=== PATIENT | female | born 1980 | race Caucasian/White ===

== ENCOUNTER 2017-02-13 20:37 | Emergency (ER) | payer BC ==
--- NOTE | 2017-02-13 22:51 | ER Document Report ---
ED Medical Screen (RME) - General Chief Complaint: Vaginal bleeding with Stated Complaint: VAGINAL BLEEDING Time Seen by Provider: 02/13/17 22:50 Notes: Patient is a 13 week 36-year-old female who presents emergency department complaining of sudden onset vaginal bleeding this evening. Patient states that she had seen [facility] Monday last week had a normal ultrasound confirming an IUP. She states that she was cooking dinner this evening when she just noticed vaginal bleeding. Otherwise denies any pelvic pain is mild back pain. TRAVEL OUTSIDE OF THE [place] IN LAST 30 DAYS: No Past Medical History Renal/ Medical History: Denies: Hx Peritoneal Dialysis Physical Exam - Vital signs Vitals: Temp Pulse Resp BP Pulse Ox 99.3 F 64 16 114/79 99 02/13/17 22:04 02/13/17 22:04 02/13/17 22:04 02/13/17 22:04 02/13/17 22:04 Course - Vital Signs Vital signs: Temp Pulse Resp BP Pulse Ox 99.3 F 64 16 114/79 99 02/13/17 22:04 02/13/17 22:04 02/13/17 22:04 02/13/17 22:04 02/13/17 22:04
[2017-02-13 23:23] LABS: ABSOLUTE EOSINOPHILS # (AUTO) 0.4 10^3/uL (0.0-0.6); ABSOLUTE LYMPHOCYTES (AUTO) 2.5 10^3/uL (0.5-4.7); ABSOLUTE MONOCYTES (AUTO) 0.5 10^3/uL (0.1-1.4); ABSOLUTE NEUT (AUTO) 7.5 10^3/uL (1.7-8.2); BASOPHILS % (AUTO) 0.5 % (0-2); EOSINOPHILS % (AUTO) 3.3 % (0-6); HEMATOCRIT 37.8 % (36.0-47.0); HEMOGLOBIN 13.2 g/dL (12.0-15.5); HGB HCT DIFFERENCE 1.8; LYMPHOCYTES % (AUTO) 23.1 % (13-45); MEAN CORPUSCULAR HEMOGLOBIN 29.6 pg (27.0-33.4); MEAN CORPUSCULAR HGB CONC 34.9 g/dL (32.0-36.0); MEAN CORPUSCULAR VOLUME 85 fl (80-97); MONOCYTES % (AUTO) 4.6 % (3-13); RED BLOOD COUNT 4.46 10^6/uL (3.72-5.28); RED CELL DISTRIBUTION WIDTH 13.4 % (11.5-14.0); SEGMENTED NEUTROPHILS % (AUTO) 68.5 % (42-78); WHITE BLOOD COUNT 10.9 10^3/uL (4.0-10.5)
[2017-02-13 23:27] LABS: APPEARANCE,URINE SLIGHTLY-CLOUDY; BILIRUBIN,URINE NEGATIVE (NEGATIVE); GLUCOSE, URINE NEGATIVE (NEGATIVE); KETONES,URINE NEGATIVE (NEGATIVE); LEUKOCYTE ESTERASE,URINE NEGATIVE (NEGATIVE); NITRITE,URINE NEGATIVE (NEGATIVE); PROTEIN,URINE 30 mg/dL (NEGATIVE); URINE SPECIFIC GRAVITY 1.023; UROBILINOGEN,URINE NEGATIVE mg/dL (<2.0)
[2017-02-13 23:33] LABS: ANION GAP 11 (5-19); BLOOD UREA NITROGEN 8 mg/dL (7-20); CALCIUM 9.4 mg/dL (8.4-10.2); CARBON DIOXIDE 23 mmol/L (22-30); CHLORIDE 106 mmol/L (98-107); CREATININE RESULT 0.42 mg/dL (0.52-1.25); GLUCOSE 83 mg/dL (75-110); SODIUM 139.6 mmol/L (137-145)
--- NOTE | 2017-02-13 23:55 | ER Document Report ---
ED GI/ - General Chief Complaint: Vaginal Bleeding Stated Complaint: VAGINAL BLEEDING Time Seen by Provider: 02/13/17 22:50 Notes: Patient is a 36 year old female, A4 at 13 weeks gestation by first trimester ultrasound, that comes to the emergency department for chief complaint of vaginal bleeding. She states she suddenly started bleeding while she was standing in the kitchen earlier this evening. She denies any pain, she denies any cramping, she denies nausea, vomiting, fever/chills, vaginal discharge. She denies dizziness. She is on vitamins, takes no daily medications otherwise, history of C-sections but no other surgeries reported. TRAVEL OUTSIDE OF THE [place] IN LAST 30 DAYS: No - Related Data Allergies/Adverse Reactions: No Known Allergies Allergy (Verified 02/14/17 00:27) Home Medications: Current Home Medications No Home Medications 02/14/17 [History] Past Medical History - General Information source: Patient - Social History Smoking Status: Current Every Day Smoker Frequency of alcohol use: None Drug Abuse: None Lives with: Family Family History: Reviewed & Not Pertinent - Medical History Medical History: Negative Renal/ Medical History: Denies: Hx Peritoneal Dialysis Past Surgical History: Reports: Hx Section - Immunizations Immunizations up to date: Yes Hx Diphtheria, Pertussis, Tetanus Vaccination: Yes Review of Systems - Review of Systems Constitutional: No symptoms reported EENT: No symptoms reported Cardiovascular: See HPI Respiratory: No symptoms reported Gastrointestinal: See HPI Genitourinary: See HPI Female Genitourinary: See HPI Musculoskeletal: No symptoms reported Skin: No symptoms reported Hematologic/Lymphatic: No symptoms reported Neurological/Psychological: No symptoms reported Physical Exam - Vital signs Vitals: Temp Pulse Resp BP Pulse Ox 99.3 F 64 16 114/79 99 02/13/17 22:04 02/13/17 22:04 02/13/17 22:04 02/13/17 22:04 02/13/17 22:04 Interpretation: Normal - General General appearance: Appears well, Alert In distress: None - Patient calm, relaxed, well-appearing - HEENT Head: Normocephalic, Atraumatic Eyes: Normal Pupils: PERRL - Respiratory Respiratory status: No respiratory distress Chest status: Nontender Breath sounds: Normal. No: Decreased air movement, Wheezing Chest palpation: Normal - Cardiovascular Rhythm: Regular. No: Tachycardia Heart sounds: Normal auscultation, S1 appreciated, S2 appreciated Murmur: No - Abdominal Inspection: Normal Distension: No distension Bowel sounds: Normal Tenderness: Nontender. No: Tender, Guarding - Completely nontender abdomen Organomegaly: No organomegaly - Back Back: Normal, Nontender - Extremities General upper extremity: Normal inspection, Nontender, Normal color, Normal ROM , Normal temperature General lower extremity: Normal inspection, Nontender, Normal color, Normal ROM , Normal temperature, Normal weight bearing. No: Dee's sign - Neurological Neuro grossly intact: Yes Cognition: Normal Orientation: AAOx4 Ever Coma Scale Eye Opening: Spontaneous [place] Coma Scale Verbal: Oriented [place] Coma Scale Motor: Obeys Commands [place] Coma Scale Total: 15 Speech: Normal Motor strength normal: LUE, RUE, LLE, RLE Sensory: Normal - Psychological Associated symptoms: Normal affect, Normal mood - Skin Skin Temperature: Warm Skin Moisture: Dry Skin Color: Normal Course - Re-evaluation Re-evalutation: Patient is very well-appearing with no current complaints and normal vital signs. CBC unremarkable, hCG is elevated as expected, urinalysis does not show any concerning findings. RhoGam is not indicated. Ultrasound showing threatened with intrauterine , heart beat present, but shows subchorionic bleed and also a fibroid. I discussed with patient the ultrasound in detail, provided a copy for her, discussed precautions and recommendations based on the subchorionic bleed, return precautions, patient and significant other state understanding and agreement. - Vital Signs Vital signs: Temp Pulse Resp BP Pulse Ox 98.5 F 78 14 105/61 99 02/14/17 01:40 02/14/17 01:40 02/14/17 01:40 02/14/17 01:40 02/14/17 01:40 - Laboratory Result Diagrams: 02/13/17 23:00 02/13/17 23:00 Laboratory results interpreted by me: 02/13/17 02/13/17 02/13/17 22:40 23:00 23:00 WBC 10.9 H Creatinine 0.42 L Beta HCG, Quant 99006.00 H Urine Protein 30 H Urine Blood LARGE H Discharge - Discharge Clinical Impression: Vaginal bleeding before 22 weeks gestation Condition: Stable Disposition: HOME, SELF-CARE Additional Instructions: Ultrasound shows a living in the uterus, there is a subchorionic bleed as we discussed, there is also uterine fibroid. Recommendation is to avoid any strenuous physical activity including jumping/running/lifting, avoid sexual intercourse, avoid these until cleared to do so by [facility]. Follow-up closely with [facility] for additional management. Return to the emergency department for any concerning symptoms including severe pain, passing out, or any other concerning symptoms. Forms: Return to Work Referrals: RAYMON ALEXANDER MD [Primary Care Provider] - Follow up as needed
--- NOTE | 2017-02-14 01:23 | RADIOLOGY REPORT (SQ) ---
EXAM DESCRIPTION: U/S [id number] TRNABD 1GES W/ODOP COMPLETED DATE/TIME: 02/14/2017 12:49 am REASON FOR STUDY: vaginal bleeding COMPARISON: None. TECHNIQUE: Transabdominal static and realtime grayscale images acquired of the pelvis. Additional se lected spectral and color Doppler images recorded. All images stored on PACs. bHCG: Not available. LIMITATIONS: None. FINDINGS: FETUS: Living intrauterine . EGA: 12 weeks 6 days YAMILETH: 08/23/2017 FHR: 163 beats per minute. SUBCHORIONIC BLEED: Yes. SIZE OF BLEED: 3.7 x 2.2 x 0.4 cm UTERUS: 6.0 cm anterior submucosal uterine wall fibroid. CERVICAL LENGTH: 3.0 cm. Closed. RIGHT ADNEXA: Ovary not identified. No adnexal free fluid. No adnexal masses. LEFT ADNEXA: Ovary not identified. No adnexal free fluid. No adnexal masses. FREE FLUID: None. OTHER: No other significant finding. IMPRESSION: LIVING INTRAUTERINE , at-risk with 3.7 cm subchorionic hemorrhage. 6 cm uterin e fibroid. EGA 12 weeks 6 days Trimester of : First - 0 to 13 weeks. TECHNICAL DOCUMENTATION: JOB ID: [id number] [employer]- All Rights Reserved
[2017-02-14 01:52] VITALS: BP 105/61
== END 2017-02-14 01:45 | disposition home or self-care (01) ==
LOC: ER 20:37
DX: O20.9 Hemorrhage in early pregnancy, unspecified (principal); O99.331 Smoking (tobacco) complicating pregnancy, first trimester; Z3A.13 13 weeks gestation of pregnancy
CPT/HCPCS: 36415; 76801; 80048; 81001; 84702; 85025; 86900; 86901; 99284

== ENCOUNTER 2017-02-26 11:15 | Inpatient (IN) | payer BC ==
[2017-02-26] MEDS ORDERED: MORPHINE SULFATE 10 MG/ML INJ IV ONE (11:35)
[2017-02-26] MEDS ORDERED: ONDANSETRON HCL INJ/PF 4 MG/2 ML SDV IV ONE (11:35)
[2017-02-26] MEDS ORDERED: NORMAL SALINE 1000 ML 1,000 ML IV ONE ×2 (11:35→12:41)
--- NOTE | 2017-02-26 11:39 | ER Document Report ---
ED GI/ - General Stated Complaint: ABDOMINAL PAIN Time Seen by Provider: 02/26/17 11:33 Mode of Arrival: Medic Information source: Patient Notes: 36 yo normally healthy, recent ex smoke, no etoh, no drugs IBSC 14 week +2 days , miscarriage in past, female felt pelvic pressure last night after work, last night some cramping, this morning woken with pains in stomach, 30 minutes felt like her water broke and gush or water came out then blood. TRAVEL OUTSIDE OF THE [place] IN LAST 30 DAYS: No - Related Data Allergies/Adverse Reactions: No Known Allergies Allergy (Verified 02/26/17 12:37) Home Medications: Current Home Medications 95/Iron Fum/Folic/Dha [ + Dha Combo Pack] 1 each PO DAILY 02/26 [History] Past Medical History - General Information source: Patient - Social History Smoking Status: Former Smoker - recent Frequency of alcohol use: None Drug Abuse: None Lives with: Family Family History: Reviewed & Not Pertinent - Medical History Medical History: Negative Renal/ Medical History: Denies: Hx Peritoneal Dialysis Past Surgical History: Reports: Hx Section - Immunizations Immunizations up to date: Yes Hx Diphtheria, Pertussis, Tetanus Vaccination: Yes Review of Systems - Review of Systems Constitutional: No symptoms reported EENT: No symptoms reported Cardiovascular: No symptoms reported Respiratory: No symptoms reported Gastrointestinal: No symptoms reported Genitourinary: No symptoms reported Female Genitourinary: See HPI Musculoskeletal: No symptoms reported Skin: No symptoms reported Hematologic/Lymphatic: No symptoms reported Neurological/Psychological: No symptoms reported Physical Exam - Vital signs Vitals: Temp Pulse Resp BP Pulse Ox 98.4 F 84 22 H 110/65 100 02/26/17 11:22 02/26/17 11:22 02/26/17 11:22 02/26/17 11:22 02/26/17 11:22 Interpretation: Normal - General General appearance: Appears well, Alert In distress: Moderate - HEENT Head: Normocephalic, Atraumatic Eyes: Normal Pupils: PERRL Neck: Supple. No: Lymphadenopathy - Respiratory Respiratory status: No respiratory distress Chest status: Nontender Breath sounds: Normal Chest palpation: Normal - Cardiovascular Rhythm: Regular Heart sounds: Normal auscultation Murmur: No - Abdominal Inspection: Normal Distension: No distension Bowel sounds: Normal Tenderness: Tender - epigastric, suprapubic Organomegaly: No organomegaly - Genitourinary External exam: Other - blood at introitus Speculum exam: Cervix closed, Other - mebranous méndez thin material hanging out of os Vaginal bleeding: Heavy - Back Back: Normal, Nontender - Extremities General upper extremity: Normal inspection, Nontender, Normal color, Normal ROM , Normal temperature General lower extremity: Normal inspection, Nontender, Normal color, Normal ROM , Normal temperature, Normal weight bearing. No: Dee's sign - Neurological Neuro grossly intact: Yes Cognition: Normal Orientation: AAOx4 Taylor Coma Scale Eye Opening: Spontaneous Taylor Coma Scale Verbal: Oriented Ever Coma Scale Motor: Obeys Commands Ever Coma Scale Total: 15 Speech: Normal Motor strength normal: LUE, RUE, LLE, RLE Sensory: Normal - Psychological Associated symptoms: Normal affect, Normal mood - Skin Skin Temperature: Warm Skin Moisture: Dry Skin Color: Normal Course - Re-evaluation Re-evalutation: 02/26/17 12:06 Dr. Fischer will admit the patient to to assist her with the miscarriage. Patient reacted to the morphine 5 mg given IV complaining that she could not breathe but she was holding her breath, lungs were clear, I did give her some Benadryl 35 mg, Solu-Medrol 125mg, Pepcid 20 mg IV. She did not become tachycardic or hypotensive. No rash. No FHT"S at the bedside. Patient had a normal ultrasound on Monday at the office. Pt and her mom understand and do not have anymore questions at this time. 02/26/17 12:41 Pain has decreased but still having cramping she has not passed anything out of her vagina except blood. 02/26/17 12:45 i asked US to do a bedisde abd us since pt has not gone to 2nd floor yet. 02/26/17 14:23 bedside US shows 13 weeks 1 day, with fhr 182, called dr. fischer and she would see pt in ER but pt just left for the floor and is not in the [facility] so calling dr fischer. and she will see the pt upstairs. 02/26/17 14:27 - Vital Signs Vital signs: Temp Pulse Resp BP Pulse Ox 99.2 F 94 20 109/58 L 99 02/26/17 14:46 02/26/17 14:46 02/26/17 14:46 02/26/17 14:46 02/26/17 14:46 - Laboratory Result Diagrams: 02/26/17 11:30 Laboratory results interpreted by me: 02/26/17 02/26/17 11:30 13:40 WBC 16.9 H Seg Neutrophils % 89.6 H Lymphocytes % 5.9 L Absolute Neutrophils 15.1 H Urine Protein 100 H Urine Ketones 20 H Urine Blood LARGE H Ur Leukocyte Esterase MODERATE H Discharge - Discharge Clinical Impression: Incomplete miscarriage at 15 weeks, pelvic pain and cramping, upper abdominal pain Condition: Stable Disposition: ADMITTED OBSERVATION Admitting Provider: [facility] Admitted: Post
[2017-02-26 11:47] LABS: ABSOLUTE EOSINOPHILS # (AUTO) 0.1 10^3/uL (0.0-0.6); ABSOLUTE MONOCYTES (AUTO) 0.6 10^3/uL (0.1-1.4); ABSOLUTE NEUT (AUTO) 15.1 10^3/uL (1.7-8.2); BASOPHILS % (AUTO) 0.2 % (0-2); EOSINOPHILS % (AUTO) 0.7 % (0-6); HEMATOCRIT 36.5 % (36.0-47.0); HEMOGLOBIN 12.5 g/dL (12.0-15.5); LYMPHOCYTES % (AUTO) 5.9 % (13-45); MEAN CORPUSCULAR HEMOGLOBIN 29.5 pg (27.0-33.4); MEAN CORPUSCULAR HGB CONC 34.4 g/dL (32.0-36.0); MEAN CORPUSCULAR VOLUME 86 fl (80-97); MONOCYTES % (AUTO) 3.6 % (3-13); RED BLOOD COUNT 4.25 10^6/uL (3.72-5.28); RED CELL DISTRIBUTION WIDTH 13.9 % (11.5-14.0); SEGMENTED NEUTROPHILS % (AUTO) 89.6 % (42-78); WHITE BLOOD COUNT 16.9 10^3/uL (4.0-10.5)
[2017-02-26] MEDS ORDERED: DIPHENHYDRAMINE HCL 50 MG/ML VIAL ONE (11:47)
[2017-02-26] MEDS ORDERED: METHYLPREDNISOLONE INJ 125 MG/2 ML SDV ONE (11:50)
[2017-02-26] MEDS ORDERED: FAMOTIDINE INJ/PF 20 MG/2 ML SDV IV ONE ×2 (11:50→12:16)
[2017-02-26] MEDS ORDERED: DIPHENHYDRAMINE HCL 50 MG/ML VIAL IV ONE (12:16)
--- NOTE | 2017-02-26 14:18 | RADIOLOGY REPORT (SQ) ---
EXAM DESCRIPTION: U/S OB LIMITED COMPLETED DATE/TIME: 02/26/2017 1:45 pm REASON FOR STUDY: impending miscarriage, bleeding and tissue in os COMPARISON: None. TECHNIQUE: Limited transvaginal grayscale ultrasound for evaluation of specific requested obstetrica l parameters. LIMITATIONS: None. FINDINGS: heart rate 182. Estimated gestational age 14 weeks 3 days. 3.5 cm subchorionic hem orrhage. Largest amniotic fluid pocket 1.6 cm. There is a 6 cm fibroid visualized. Cervix measures 4.3 cm and is closed. Small amount of fluid in the external os. IMPRESSION: LIMITED OBSTETRICAL ULTRASOUND WITH MEASURED PARAMETERS DELINEATED ABOVE. Trimester of : Second trimester - 13 weeks 1 day to 27 weeks 6 days. TECHNICAL DOCUMENTATION: JOB ID: [id number] [employer]- All Rights Reserved
[2017-02-26 14:23] LABS: APPEARANCE,URINE CLEAR; BILIRUBIN,URINE NEGATIVE (NEGATIVE); GLUCOSE, URINE NEGATIVE (NEGATIVE); KETONES,URINE 20 mg/dL (NEGATIVE); LEUKOCYTE ESTERASE,URINE MODERATE (NEGATIVE); NITRITE,URINE NEGATIVE (NEGATIVE); PROTEIN,URINE 100 mg/dL (NEGATIVE); URINE SPECIFIC GRAVITY 1.006; UROBILINOGEN,URINE NEGATIVE mg/dL (<2.0)
[2017-02-26] MEDS ORDERED: AMPICILLIN SOD/SULBACTAM 3 GM VIAL IV SCH (15:15)
--- NOTE | 2017-02-26 15:42 | PDOC H&P ---
History of Present Illness Admission Date/PCP: 02/26/17 12:27 Patient complains of: bleeding and rupture of membranes History of Present Illness: LIAM BHATIA is a 36 year old female @ 14 wks arrived to ER after experiencing a "mayen of fluid" with bleeding at home. +Cramping. Has had 4 SABs in early 1st trimester. 2 FT deliveries with the second being a c/section 7 years ago. Past Surgical History Past Surgical History: Reports: Section Social History Information Source: Patient Lives with: Spouse/Significant other Smoking Status: Former Smoker Cigarettes Packs Per Day: 0.5 Number of Years Smokin Last Time Smoked: 02/22/2017 Frequency of Alcohol Use: None Hx Recreational Drug Use: No Drugs: None Hx Prescription Drug Abuse: No - Advance Directive Resuscitation Status: Full Code Family History Family History: Reviewed & Not Pertinent Parental Family History Reviewed: Yes Children Family History Reviewed: Yes Sibling(s) Family History Reviewed.: Yes Medication/Allergy Home Medications: 95/Iron Fum/Folic/Dha [ + Dha Combo Pack] 1 each PO DAILY 02/26 Allergies/Adverse Reactions: No Known Allergies Allergy (Verified 02/26/17 12:37) Physical Exam - Physical Exam Vital Signs: Temp Pulse Resp BP Pulse Ox 99.2 F 94 20 109/58 L 99 02/26/17 14:46 02/26/17 14:46 02/26/17 14:46 02/26/17 14:46 02/26/17 14:46 General appearance: PRESENT: no acute distress, cooperative GI/Abdominal exam: PRESENT: soft, tenderness - Gynecological Exam Labia: normal Urethra: normal Perineum: discharge - blood on perineum Vagina: discharge - thin bloody watery discharge pooling in posterior fornix Cervix: other - oxternal os open. internal os closed Result Laboratory Results: 02/26/17 13:40 Urine Color RED Urine Appearance CLEAR Urine pH 6.0 Ur Specific [place] 1.006 Urine Protein 100 H Urine Glucose (UA) NEGATIVE Urine Ketones 20 H Urine Blood LARGE H Urine Nitrite NEGATIVE Ur Leukocyte Esterase MODERATE H Urine WBC (Auto) 0 Urine RBC (Auto) 1 Impressions: Obstetrics Ultrasound 02/26/17 12:42 IMPRESSION: LIMITED OBSTETRICAL ULTRASOUND WITH MEASURED PARAMETERS DELINEATED ABOVE. Trimester of : Second trimester - 13 weeks 1 day to 27 weeks 6 days. Assessment & Plan - Diagnosis (1) Incomplete miscarriage Is this a current diagnosis for this admission?: Yes (2) Chorioamnionitis Qualifiers: Fetus number: single or unspecified fetus Trimester: second trimester Qualified Code(s): O41.1220 - Chorioamnionitis, second trimester, not applicable or unspecified Is this a current diagnosis for this admission?: Yes Plan: discussed with patient regarding lack of interventions available to fetus at this early gestational age well before age of viability. counseled on likelihood of chorioamnionitis and possible progression to sepsis if not treated. counseled conservative management vs medical management. Explained that at this gestational age would advise medical management before attempting surgical management for any type of retained products. Did explain that although fetus does have a heartbeat at this time, the likelihood of continuing to a viable gestational age is very small and that would anticipate that heart beat would stop of it own accord with conservative management based on sono findings of subchorionic hemorrhage and lack of ELVI. Patient to consider medical management regarding completion of SAB. Does agree to start antibiotics at this time to attempt to prevent sepsis. - Time Time Spent: 30 to 50 Minutes Smoking Cessation Education: 3 to 10 minutes Medications reviewed and adjusted accordingly: Yes Anticipated discharge: Home Within: within 48 hours - Inpatient Certification Based on my medical assessment, after consideration of the patient's comorbidities, presenting symptoms, or acuity I expect that the services needed warrant INPATIENT care.: Yes I certify that my determination is in accordance with my understanding of Medicare's requirements for reasonable and necessary INPATIENT services [42 CFR 412.3e].: Yes Medical Necessity: Need Close Monitoring Due to Risk of Patient Decompensation, Need for IV Antibiotics, Risk of Complication if Not Cared For in Hospital
[2017-02-26] MEDS ORDERED: AMPICILLIN SODIUM/SULBACTAM NA 3 GM in NORMAL SALINE 100 ML IV ONE (16:30)
[2017-02-26 18:51] LABS: URINE BARBITURATES SCREEN NEGATIVE; URINE METHADONE SCREEN NEGATIVE; URINE PHENCYCLIDINE SCREEN NEGATIVE
[2017-02-26 19:05] LABS: URINE OPIATES LOW UNCONFIRMED POSITIVE
[2017-02-26] MEDS ORDERED: OXYCODONE-ACETAMINOPHEN 5-325 MG TABLET PO PRN (19:33)
[2017-02-26] MEDS: ACETAMINOPHEN 325 MG TABLET PO PRN (20:47)
[2017-02-26] MEDS: AMPICILLIN SODIUM/SULBACTAM NA 3 GM in NORMAL SALINE 100 ML IV SCH (22:41)
[2017-02-27] MEDS: ACETAMINOPHEN 325 MG TABLET PO PRN (04:37)
[2017-02-27] MEDS: AMPICILLIN SODIUM/SULBACTAM NA 3 GM in NORMAL SALINE 100 ML IV SCH ×3 (05:09→22:26)
--- NOTE | 2017-02-27 08:56 | PDOC PROGRESS REPORT ---
Subjective Subjective:: Pt reports very mild spotting, leaking a little fluid, NO abdominal pain No new complaints Physical Exam - Physical Exam Vital Signs: Temp Pulse Resp BP Pulse Ox 98.2 F 68 17 95/49 L 98 02/27/17 07:51 02/27/17 07:51 02/27/17 07:51 02/27/17 07:51 02/27/17 07:51 Intake & Output 02/26/17 02/27/17 02/28/17 06:59 06:59 06:59 Intake Total 500 Output Total 275 Balance 225 General appearance: PRESENT: no acute distress, cooperative, well-developed GI/Abdominal exam: PRESENT: normal bowel sounds, soft - Abdomen is nontender - Gynecological Exam Labia: normal Urethra: normal Perineum: discharge - blood on perineum Vagina: discharge - thin bloody watery discharge pooling in posterior fornix Cervix: other - oxternal os open. internal os closed Result Impressions: Obstetrics Ultrasound 02/26/17 12:42 IMPRESSION: LIMITED OBSTETRICAL ULTRASOUND WITH MEASURED PARAMETERS DELINEATED ABOVE. Trimester of : Second trimester - 13 weeks 1 day to 27 weeks 6 days. Assessment & Plan - Diagnosis (1) Incomplete miscarriage Is this a current diagnosis for this admission?: Yes - Time Time Spent with patient: Less than 15 minutes Medications reviewed and adjusted accordingly: Yes Anticipated discharge: Home Within: Other - Pt is still undecided about what course she wants to take. Answered questions for pt. Will recheck cbc, heart tones and continue IV Abx
[2017-02-27] MEDS ORDERED: IBUPROFEN 800 MG TABLET PO PRN (09:12)
[2017-02-27] MEDS ORDERED: ONDANSETRON 4 MG TAB.RAPDIS PO PRN (09:13)
[2017-02-27 10:55] LABS: HEMATOCRIT 33.5 % (36.0-47.0); HEMOGLOBIN 11.3 g/dL (12.0-15.5); HGB HCT DIFFERENCE 0.4; MEAN CORPUSCULAR HEMOGLOBIN 29.1 pg (27.0-33.4); MEAN CORPUSCULAR HGB CONC 33.7 g/dL (32.0-36.0); MEAN CORPUSCULAR VOLUME 86 fl (80-97); RED BLOOD COUNT 3.88 10^6/uL (3.72-5.28); RED CELL DISTRIBUTION WIDTH 13.7 % (11.5-14.0); WHITE BLOOD COUNT 16.9 10^3/uL (4.0-10.5)
--- NOTE | 2017-02-27 11:26 | RADIOLOGY REPORT (SQ) ---
EXAM DESCRIPTION: U/S OB LIMITED COMPLETED DATE/TIME: 02/27/2017 11:05 am REASON FOR STUDY: Check for viability, PROM at 15 weeks 02/25 COMPARISON: OB ultrasound 02/26/2017, 02/14/2017 TECHNIQUE: Limited transabdominal grayscale ultrasound for evaluation of specific requested obstetri jose parameters. LIMITATIONS: None. FINDINGS: CERVICAL LENGTH: 3.3 cm Closed. ELVI: 1 cm. There is oligohydramnios with only a tiny pocket of fluid measuring 1 cm in size. This r esult was discussed with Dr. Pineda. FHR: 155 beats per minute. PRESENTATION: Cephalic. OTHER: Anterior placenta IMPRESSION: Oligohydramnios heart rate 155 beats per minute Results called to the OB attending physician Trimester of : Third trimester - 28 weeks to delivery. TECHNICAL DOCUMENTATION: JOB ID: [id number] [employer]- All Rights Reserved
[2017-02-28] MEDS: ACETAMINOPHEN 325 MG TABLET PO PRN (00:26)
[2017-02-28] MEDS: AMPICILLIN SODIUM/SULBACTAM NA 3 GM in NORMAL SALINE 100 ML IV SCH ×3 (06:23→22:21)
[2017-02-28 07:24] LABS: HEMATOCRIT 28.8 % (36.0-47.0); HEMOGLOBIN 10.1 g/dL (12.0-15.5); HGB HCT DIFFERENCE 1.5; MEAN CORPUSCULAR HEMOGLOBIN 30.3 pg (27.0-33.4); MEAN CORPUSCULAR VOLUME 87 fl (80-97); RED BLOOD COUNT 3.32 10^6/uL (3.72-5.28); RED CELL DISTRIBUTION WIDTH 13.4 % (11.5-14.0); WHITE BLOOD COUNT 10.3 10^3/uL (4.0-10.5)
[2017-02-28] MEDS: FERROUS SULFATE 325 MG TABLET PO SCH ×2 (10:40→17:03)
--- NOTE | 2017-02-28 12:23 | PDOC PROGRESS REPORT ---
Subjective Progress Note for:: 02/28/17 Subjective:: Pt. denies spotting since early this am. Denies Leakage of fluid today and does report moderate cramping last night and mild cramping today as well as abdominal ternderness with palpation or sudden movement. Reports no bowel movement x5-7 days feeling urge to have bowel movement but scared it might be pressure from baby. Reports she wants to hang on to the hope that the baby will survive. Wondering what the plan will be at this time.Denies other concerns. Physical Exam - Physical Exam Vital Signs: Temp Pulse Resp BP Pulse Ox 97.6 F 79 15 103/53 L 100 02/28/17 07:24 02/28/17 07:24 02/28/17 07:24 02/28/17 07:24 02/28/17 07:24 Intake & Output 02/27/17 02/28/17 03/01/17 06:59 06:59 06:59 Intake Total 500 1000 Output Total 275 600 Balance 225 400 General appearance: PRESENT: no acute distress GI/Abdominal exam: PRESENT: other - soft, + tenderness on Left upper quadrant and right lower abdominal pain with palpation - Gynecological Exam Cervix: not examined - Obstetrical Exam Tender: No - FHT @ 166 this am per RN w doppler. Result Laboratory Results: 02/28/17 06:52 02/27/17 02/28/17 10:35 06:52 WBC 16.9 H 10.3 RBC 3.88 3.32 L Hgb 11.3 L 10.1 L Hct 33.5 L 28.8 L MCV 86 87 MCH 29.1 30.3 MCHC 33.7 35.0 RDW 13.7 13.4 Plt Count 167 137 L Impressions: Obstetrics Ultrasound 02/27/17 00:00 IMPRESSION: Oligohydramnios heart rate 155 beats per minute Results called to the OB attending physician Trimester of : Third trimester - 28 weeks to delivery. Assessment & Plan - Diagnosis (1) premature rupture of membranes Is this a current diagnosis for this admission?: Yes Plan: will have repeat ELVI tomorrow per Dr. Cruz, continue heart tones q shift. continue to monitor for s/s of abruption/infection/SAB (2) Chorioamnionitis Qualifiers: Fetus number: single or unspecified fetus Trimester: second trimester Qualified Code(s): O41.1220 - Chorioamnionitis, second trimester, not applicable or unspecified Is this a current diagnosis for this admission?: Yes Plan: WBC down to 10.3 from 16.9, continue antibiotics at this time (3) Anemia affecting Qualifiers: Trimester: second trimester Qualified Code(s): O99.012 - Anemia complicating , second trimester Is this a current diagnosis for this admission?: Yes Plan: will obtain anemia panel and start feso4 bid today - Time Time Spent with patient: 15-24 minutes Medications reviewed and adjusted accordingly: Yes Anticipated discharge: Home Within: within 24 hours
[2017-02-28] MEDS: DOCUSATE SODIUM 100 MG CAPSULE PO PRN (17:04)
--- NOTE | 2017-03-01 01:37 | RADIOLOGY REPORT (SQ) ---
EXAM DESCRIPTION: U/S OB LIMITED COMPLETED DATE/TIME: 02/28/2017 11:49 pm REASON FOR STUDY: Heart Tones, and Fluid check STAT COMPARISON: 02/27/2017, 02/26/2017. TECHNIQUE: Limited transabdominal grayscale ultrasound for evaluation of specific requested obstetri jose parameters. LIMITATIONS: None. FINDINGS: CERVICAL LENGTH: 4.2 cm up to 1.0 cm diameter of the cervical canal with small fluid. ELVI: 1.0 cm. FHR: 68 beats per minute. PRESENTATION: Cephalic. OTHER: No other significant findings. IMPRESSION: Oligohydramnios again demonstrated. Small fluid in the cervical canal. LIMITED OBSTETR ICAL ULTRASOUND WITH MEASURED PARAMETERS DELINEATED ABOVE. Trimester of : Third trimester - 28 weeks to delivery. TECHNICAL DOCUMENTATION: JOB ID: [id number] [employer]- All Rights Reserved
[2017-03-01] MEDS: AMPICILLIN SODIUM/SULBACTAM NA 3 GM in NORMAL SALINE 100 ML IV SCH ×3 (05:11→22:08)
--- NOTE | 2017-03-01 05:36 | PDOC PROGRESS REPORT ---
Subjective Progress Note for:: 03/01/17 Subjective:: called by RN on floor who reported they were unable to obtain FHR by doppler at approx 2300. US ordered for FHR and report available now and reviewed with the patient. Physical Exam - Physical Exam Vital Signs: Temp Pulse Resp BP Pulse Ox 98.5 F 76 16 95/50 L 100 03/01/17 03:53 03/01/17 03:53 03/01/17 03:53 03/01/17 03:53 03/01/17 03:53 Intake & Output 02/27/17 02/28/17 03/01/17 06:59 06:59 06:59 Intake Total 500 1000 1350 Output Total 275 600 Balance [phone] General appearance: PRESENT: no acute distress, well-developed, well-nourished Head exam: PRESENT: atraumatic, normocephalic Respiratory exam: PRESENT: clear to auscultation jian, symmetrical, unlabored Cardiovascular exam: PRESENT: RRR. ABSENT: diastolic murmur, rubs, systolic murmur Pulses: PRESENT: normal dorsalis pedis pul, +2 pedal pulses bilateral GI/Abdominal exam: PRESENT: normal bowel sounds, soft, tenderness - mild lower abd ttp. ABSENT: distended, guarding, mass, organolmegaly, rebound Rectal exam: PRESENT: deferred Extremities exam: PRESENT: full ROM. ABSENT: calf tenderness, clubbing, pedal edema Neurological exam: PRESENT: alert, awake, oriented to person, oriented to place , oriented to time, oriented to situation, CN II-XII grossly intact. ABSENT: motor sensory deficit Psychiatric exam: PRESENT: appropriate affect - tearful with diagnosis., normal mood. ABSENT: homicidal ideation, suicidal ideation Skin exam: PRESENT: dry, intact, warm. ABSENT: cyanosis, rash - Gynecological Exam Labia: normal Urethra: normal Perineum: discharge - blood on perineum Vagina: discharge - thin bloody watery discharge pooling in posterior fornix Cervix: other - oxternal os open. internal os closed Cervix: not examined Result Laboratory Results: 02/28/17 06:52 02/28/17 02/28/17 02/28/17 06:52 06:52 06:52 WBC 10.3 RBC 3.32 L Hgb 10.1 L Hct 28.8 L MCV 87 MCH 30.3 MCHC 35.0 RDW 13.4 Plt Count 137 L Retic Count (auto) 1.99 Absolute Retic 0.067 Iron 23.5 L TIBC 306 % Saturation 8 Ferritin 44.10 Vitamin B12 249.0 Folate 19.00 Impressions: Obstetrics Ultrasound 02/28/17 00:00 IMPRESSION: Oligohydramnios again demonstrated. Small fluid in the cervical canal. LIMITED OBSTETRICAL ULTRASOUND WITH MEASURED PARAMETERS DELINEATED ABOVE. Trimester of : Third trimester - 28 weeks to delivery. FHR 68 Status: Imported from PACS Assessment & Plan - Diagnosis (1) premature rupture of membranes Qualifiers: PROM onset of labor timing: unspecified duration between rupture of membranes and onset of labor Qualified Code(s): O42.919 - premature rupture of membranes, unspecified as to length of time between rupture and onset of labor, unspecified trimester Is this a current diagnosis for this admission?: Yes Plan: s/w pt regarding FHR 68 and inevitable loss at this time. Pt reports that she would like interval repeat US with confirmation of absent FHR prior to pursuing medications for induction of delivery. She was tearful regarding diagnosis but o/w affect approp and verbalized understanding of diagnosis. (2) Incomplete miscarriage Is this a current diagnosis for this admission?: Yes Plan: FHR now 68 and inevitable loss at this time. Pt desires expectant management. - Time Time Spent with patient: Less than 15 minutes Medications reviewed and adjusted accordingly: Yes Anticipated discharge: Home Within: within 36 hours - Inpatient Certification Based on my medical assessment, after consideration of the patient's comorbidities, presenting symptoms, or acuity I expect that the services needed warrant INPATIENT care.: Yes I certify that my determination is in accordance with my understanding of Medicare's requirements for reasonable and necessary INPATIENT services [42 CFR 412.3e].: Yes Medical Necessity: Need Close Monitoring Due to Risk of Patient Decompensation, Need for Pain Control, Risk of Complication if Not Cared For in Hospital Post Hospital Care: D/C Rib Cloth Knitter Documentation
[2017-03-01 08:03] LABS: HEMATOCRIT 30.9 % (36.0-47.0); HEMOGLOBIN 10.8 g/dL (12.0-15.5); HGB HCT DIFFERENCE 1.5; MEAN CORPUSCULAR HEMOGLOBIN 29.9 pg (27.0-33.4); MEAN CORPUSCULAR HGB CONC 35.1 g/dL (32.0-36.0); MEAN CORPUSCULAR VOLUME 85 fl (80-97); RED BLOOD COUNT 3.63 10^6/uL (3.72-5.28); RED CELL DISTRIBUTION WIDTH 13.5 % (11.5-14.0); WHITE BLOOD COUNT 8.6 10^3/uL (4.0-10.5)
--- NOTE | 2017-03-01 08:11 | RADIOLOGY REPORT (SQ) ---
EXAM DESCRIPTION: U/S OB LIMITED COMPLETED DATE/TIME: 03/01/2017 8:01 am REASON FOR STUDY: Check for heart tones and ELVI COMPARISON: 02/28/2017 TECHNIQUE: Limited transvaginal grayscale ultrasound for evaluation of specific requested obstetrica l parameters. LIMITATIONS: None. FINDINGS: ELVI: Largest pocket 1.2 cm. FHR: No cardiac activity is identified. PRESENTATION: Cephalic. OTHER: No other significant findings. IMPRESSION: No cardiac activity is identified. Trimester of : Second trimester - 13 weeks 1 day to 27 weeks 6 days. TECHNICAL DOCUMENTATION: JOB ID: [id number] [employer]- All Rights Reserved
[2017-03-01] MEDS: ACETAMINOPHEN 325 MG TABLET PO PRN (08:43)
[2017-03-01] MEDS: DOCUSATE SODIUM 100 MG CAPSULE PO PRN (09:07)
[2017-03-01] MEDS: FERROUS SULFATE 325 MG TABLET PO SCH ×2 (09:07→18:41)
[2017-03-01] MEDS ORDERED: SUCCINYLCHOLINE CHLORIDE INJ 200 MG/10 ML VIAL ONE (09:34)
[2017-03-01] MEDS ORDERED: METOCLOPRAMIDE HCL INJ/PF 10 MG/2 ML SDV ONE (09:34)
--- NOTE | 2017-03-01 09:37 | PDOC PROGRESS REPORT ---
Subjective Progress Note for:: 03/01/17 Subjective:: Discussed demise with the patient. We now plan an induction of labor. Physical Exam - Physical Exam Vital Signs: Temp Pulse Resp BP Pulse Ox 97.9 F 71 16 107/59 L 99 03/01/17 07:42 03/01/17 07:42 03/01/17 07:42 03/01/17 07:42 03/01/17 07:42 Intake & Output 02/28/17 03/01/17 03/02/17 06:59 06:59 06:59 Intake Total 1000 1450 Output Total 600 Balance 400 1450 General appearance: PRESENT: no acute distress, well-developed, well-nourished - Gynecological Exam Labia: normal Urethra: normal Perineum: discharge - blood on perineum Vagina: discharge - thin bloody watery discharge pooling in posterior fornix Cervix: other - oxternal os open. internal os closed Cervix: not examined Result Laboratory Results: 03/01/17 07:32 02/28/17 02/28/17 02/28/17 06:52 06:52 06:52 WBC RBC Hgb Hct MCV MCH MCHC RDW Plt Count Retic Count (auto) 1.99 Absolute Retic 0.067 Iron 23.5 L TIBC 306 % Saturation 8 Transferrin 229 Ferritin 44.10 Vitamin B12 249.0 Folate 19.00 03/01/17 07:32 WBC 8.6 RBC 3.63 L Hgb 10.8 L Hct 30.9 L MCV 85 MCH 29.9 MCHC 35.1 RDW 13.5 Plt Count 161 Retic Count (auto) Absolute Retic Iron TIBC % Saturation Transferrin Ferritin Vitamin B12 Folate Impressions: Obstetrics Ultrasound 03/01/17 07:30 IMPRESSION: No cardiac activity is identified. Trimester of : Second trimester - 13 weeks 1 day to 27 weeks 6 days. Assessment & Plan - Diagnosis (1) Incomplete miscarriage Is this a current diagnosis for this admission?: Yes Plan: We plan to proceed with an induction of labor using cytotec [facility]. Iv pain medication. She may have an epidural if desired.
[2017-03-01] MEDS ORDERED: HYDROMORPHONE HCL INJ/PF 2 MG/ML AMPULE IV PRN ×2 (09:47→18:05)
[2017-03-01] MEDS ORDERED: MISOPROSTOL 0.2 MG TABLET PO SCH (10:00)
[2017-03-01] MEDS ORDERED: MISOPROSTOL 0.2 MG TABLET PR ONE (10:30)
[2017-03-01] MEDS: MISOPROSTOL 0.2 MG TABLET PR SCH (14:01)
[2017-03-01] MEDS ORDERED: LIDOCAINE 2% INJ-PF (20 MG/ML) 10 ML AMPUL ONE (16:46)
[2017-03-01] MEDS ORDERED: FENTANYL CITRATE INJ/PF 100 MCG/2 ML AMPUL ONE (16:46)
[2017-03-01] MEDS ORDERED: PROPOFOL INJ 200 MG/20 ML VIAL IV ONE (16:46)
[2017-03-01] MEDS ORDERED: ONDANSETRON HCL INJ/PF 4 MG/2 ML SDV ONE (16:46)
[2017-03-01] MEDS ORDERED: DEXAMETHASONE SOD PHOSPHATE INJ 4 MG/1 ML VIAL ONE (16:46)
[2017-03-01] MEDS ORDERED: MIDAZOLAM 2 MG/2 ML INJ ONE (16:46)
[2017-03-01] MEDS ORDERED: ACETAMINOPHEN 100 ML IV ONE (16:47)
[2017-03-01] MEDS ORDERED: PROMETHAZINE HCL INJ 25 MG/1 ML VIAL IV PRN ×3 (17:32→17:47)
[2017-03-01] MEDS ORDERED: FENTANYL CITRATE INJ/PF 100 MCG/2 ML AMPUL IV PRN ×3 (17:32)
[2017-03-01] MEDS ORDERED: MORPHINE SULFATE 10 MG/ML INJ IV PRN (17:32)
[2017-03-01] MEDS ORDERED: OXYCODONE-ACETAMINOPHEN 5-325 MG TABLET PO PRN ×2 (17:32)
[2017-03-01] MEDS ORDERED: ONDANSETRON HCL INJ/PF 4 MG/2 ML SDV IV PRN (17:32)
[2017-03-01] MEDS ORDERED: DIPHENHYDRAMINE HCL 50 MG/ML VIAL IV PRN (17:32)
[2017-03-01] MEDS ORDERED: MEPERIDINE HCL/PF INJ 25 MG/1 ML DISP.SYRIN IV PRN (17:32)
[2017-03-01] MEDS ORDERED: DIBUCAINE 1% OINTMENT 28 GM TP PRN (17:47)
[2017-03-01] MEDS ORDERED: PSEUDOEPHEDRINE HCL 30 MG TABLET PO PRN (17:47)
[2017-03-01] MEDS ORDERED: ACETAMINOPHEN WITH CODEINE #3 TABLET PO PRN ×2 (17:47)
[2017-03-01] MEDS ORDERED: DIPHENHYDRAMINE HCL 25 MG CAPSULE PO PRN (17:47)
[2017-03-01] MEDS ORDERED: NA PHOS,M-B/NA PHOS,DI-BA (ADULT) 133 ML ENEMA PR PRN (17:47)
[2017-03-01] MEDS ORDERED: OXYTOCIN/NORMAL SALINE 20 UNIT/1,000 ML RTUINJ IV PRN (17:47)
[2017-03-01] MEDS ORDERED: ACETAMINOPHEN 650 MG SUPP.RECT PR PRN (17:47)
[2017-03-01] MEDS ORDERED: GLYCERIN/WITCH HAZEL LEAF 1 EACH MED..PAD TP PRN (17:47)
[2017-03-01] MEDS ORDERED: PROMETHAZINE HCL 25 MG TABLET PO PRN (17:47)
[2017-03-01] MEDS ORDERED: ZOLPIDEM TARTRATE 5 MG TABLET PO PRN (17:47)
[2017-03-01] MEDS ORDERED: MEASLES,MUMPS&RUBELLA VACC/PF 0.5 ML VIAL SUBCUT PRN (17:47)
[2017-03-01] MEDS ORDERED: DIPH/PERTUSS(ACELL)/TETANUS VAC/PF 0.5 ML SYR (>=10YO) IM PRN (17:47)
[2017-03-01] MEDS ORDERED: PROMETHAZINE HCL 25 MG SUPP.RECT PR PRN (17:47)
[2017-03-01] MEDS ORDERED: MAGNESIUM HYDROXIDE SUSP 30 ML UDCUP PO PRN (17:47)
--- NOTE | 2017-03-01 17:54 | Operative Report ---
Operative Report DATE OF SURGERY: 03/01/17 PREOPERATIVE DIAGNOSIS: Retained placenta after miscarriage POSTOPERATIVE DIAGNOSIS: Same OPERATION: Suction D&C SURGEON: GREG RODRIGUEZ ANESTHESIA: GA TISSUE REMOVED OR ALTERED: Placenta COMPLICATIONS: None ESTIMATED BLOOD LOSS: 50 cc INTRAOPERATIVE FINDINGS: Retained placenta PROCEDURE: The patient has passed a 14 week size fetus the cord broke when she passed the fetus into the toilet. We have waited approximately an hour in the placenta is retained. Speculum exam shows a open cervix there is no placenta at the os. For this reason we will proceed with suction D&C. Patient was taken to the OR and placed in supine position. General anesthesia was induced. She is placed in dorsolithotomy position using Julian stirrups. A weighted speculum was placed after the vagina was prepped. The anterior lip cervix was grasped with a ring forcep. A second ring forcep was used to probe the cervical loss. There were some membranes present. Next a size 12 suction curette was used to evacuate the uterine contents with a large return of placenta. After the removal of the placenta there were no further retained products found with further suction curettage or gentle sharp curettage. Sound was to 12 cm at the end of the case. The uterus appeared to be rubio down and the bleeding decreased. All instruments were removed she is placed back in supine position taken out of anesthesia and taken to recovery room in stable condition.
[2017-03-01] MEDS ORDERED: MISOPROSTOL 0.2 MG TABLET PR PRN (18:04)
[2017-03-01 19:20] LABS: ABSOLUTE EOSINOPHILS # (AUTO) 0.1 10^3/uL (0.0-0.6); ABSOLUTE LYMPHOCYTES (AUTO) 0.8 10^3/uL (0.5-4.7); ABSOLUTE MONOCYTES (AUTO) 0.3 10^3/uL (0.1-1.4); ABSOLUTE NEUT (AUTO) 12.8 10^3/uL (1.7-8.2); BASOPHILS % (AUTO) 0.2 % (0-2); EOSINOPHILS % (AUTO) 0.7 % (0-6); HEMATOCRIT 30.4 % (36.0-47.0); HEMOGLOBIN 10.4 g/dL (12.0-15.5); HGB HCT DIFFERENCE 0.8; LYMPHOCYTES % (AUTO) 5.7 % (13-45); MEAN CORPUSCULAR HEMOGLOBIN 28.8 pg (27.0-33.4); MEAN CORPUSCULAR HGB CONC 34.1 g/dL (32.0-36.0); MEAN CORPUSCULAR VOLUME 85 fl (80-97); MONOCYTES % (AUTO) 1.9 % (3-13); RED BLOOD COUNT 3.59 10^6/uL (3.72-5.28); RED CELL DISTRIBUTION WIDTH 13.3 % (11.5-14.0); SEGMENTED NEUTROPHILS % (AUTO) 91.5 % (42-78)
[2017-03-01] MEDS ORDERED: FAMOTIDINE 20 MG TABLET PO SCH (22:00)
[2017-03-01] MEDS: IBUPROFEN 800 MG TABLET PO SCH (22:09)
[2017-03-02] MEDS: MISOPROSTOL 0.2 MG TABLET PR SCH ×3 (01:11→05:49)
[2017-03-02] MEDS: AMPICILLIN SODIUM/SULBACTAM NA 3 GM in NORMAL SALINE 100 ML IV SCH (05:42)
[2017-03-02] MEDS: IBUPROFEN 800 MG TABLET PO SCH (05:43)
--- NOTE | 2017-03-02 07:22 | PDOC DISCHARGE SUMMARY ---
Final Diagnosis Discharge Date: 03/02/17 - Final Diagnosis (1) Incomplete miscarriage Is this a current diagnosis for this admission?: Yes Discharge Data - Discharge Medication Home Medications: 95/Iron Fum/Folic/Dha [ + Dha Combo Pack] 1 each PO DAILY 02/26 Gestational Age: 14 Reason(s) for Admission: Demise - demise at 14 weeks prior to delivery. Admission Note: The pt was admitted with ruptured membranes at 14 weeks. Procedures: None Intrapartum Procedure(s): Other - Diagnosis Test Laboratory: Temp Pulse Resp BP Pulse Ox 98.5 F 64 14 92/45 L 98 03/02/17 03:27 03/02/17 03:27 03/02/17 03:27 03/02/17 03:27 03/02/17 03:27 02/26/17 02/27/17 02/28/17 18:10 10:35 06:52 RBC 3.88 3.32 L Hgb 11.3 L 10.1 L Hct 33.5 L 28.8 L Urine Opiates Screen UNCONFIRMED POSITIVE 03/01/17 03/01/17 07:32 19:11 RBC 3.63 L 3.59 L Hgb 10.8 L 10.4 L Hct 30.9 L 30.4 L Urine Opiates Screen - Discharge information/Instructions Discharge Activity: Pelvic Rest Discharge Diet: As Tolerated, Regular Disposition: HOME, SELF-CARE Follow up with: [facility] in: 1, Weeks
[2017-03-02 08:00] LABS: HEMATOCRIT 29.7 % (36.0-47.0); HEMOGLOBIN 10.3 g/dL (12.0-15.5); HGB HCT DIFFERENCE 1.2; MEAN CORPUSCULAR HEMOGLOBIN 29.3 pg (27.0-33.4); MEAN CORPUSCULAR HGB CONC 34.8 g/dL (32.0-36.0); MEAN CORPUSCULAR VOLUME 84 fl (80-97); RED BLOOD COUNT 3.52 10^6/uL (3.72-5.28); RED CELL DISTRIBUTION WIDTH 13.4 % (11.5-14.0); WHITE BLOOD COUNT 13.8 10^3/uL (4.0-10.5)
[2017-03-02 08:38] VITALS: BP 101/57
[2017-03-02] MEDS ORDERED: FERROUS SULFATE 325 MG TABLET PO SCH (10:00)
[2017-03-02] MEDS ORDERED: SENNOSIDES/DOCUSATE 8.6-50 MG 1 EACH TABLET PO SCH (10:00)
== END 2017-03-02 10:05 | disposition home or self-care (01) | DRG 770 ==
LOC: ER 11:15 → EH 12:27 → 2S 14:30 → OBSVTOIN 15:14
PROVIDERS: ADMIT Obstetrics & Gynecology; ATTEND Obstetrics & Gynecology
PROC: 10D17ZZ Extraction of Products of Conception, Retained, Via Natural or Artificial Opening (ICD-10-PCS; principal; 2017-03-01 17:30)
DX: O03.4 Incomplete spontaneous abortion without complication (principal); O41.1220 Chorioamnionitis, second trimester, not applicable or unspecified; O99.012 Anemia complicating pregnancy, second trimester; Z87.891 Personal history of nicotine dependence
CPT/HCPCS: 1965; 36415; 76815; 80307; 81001; 82607; 82728; 82746; 83540; 83550; 84466; 85025; 85027; 85045; 86850; 86900; 86901; 88305; 96361; 96374; 96375; 99285; J0131; J0295; J0330; J1100; J1170; J1200; J2250; J2270; J2405; J2704; J2765; J2930; J3010; J3490; J7030; S0028

== ENCOUNTER 2017-12-06 12:20 | Outpatient (CLI) | payer BC, MEDICAID ==
--- NOTE | 2017-12-06 13:42 | Non Stress Test Report ---
Non Stress Test Datetime Report Generated by CPN: 12/06/2017 13:42 DEMOGRAPHIC EGA NST: 32.2 INDICATION Indication for Study: Multiple Gestation; Ordered by Provider MONITORING Monitor Explained: Monitor Explained; Test Explained; Patient Verbalized Understanding Time on Monitor: 12/06/2017 12:36 Time off Monitor: 12/06/2017 13:27 NST Duration: 51 NST INTERVENTIONS NST Interventions: PO Hydration Physician Notified NST: Wang BABY A: [id number] BABY A Movement : Present Contraction Frequency : 0 FHR Baseline : 135 Accelerations : 15X15 Decelerations : None Variability : Moderate 6-25bpm NST Review: Meets Criteria for Reactive NST NST Review and Verified By : LAURA ROTHMAN RN NST Results: Reactive BABY B Movement: Present FHR Baseline: 125 Accelerations: 15X15 Decelerations: None Variability: Moderate 6-25bpm NST Review: Meets Criteria for Reactive NST NST Reviewed And Verified By: BL ROULUND, RN NST Results: Reactive NST REPORT Report Trigger: Send Report
== END 2017-12-06 13:37 | disposition home or self-care (01) ==
LOC: LC 12:20
PROVIDERS: ATTEND Obstetrics & Gynecology
PROC: 4A1HXCZ Monitoring of Products of Conception, Cardiac Rate, External Approach (ICD-10-PCS; principal; 2017-12-06)
DX: O30.003 Twin pregnancy, unspecified number of placenta and unspecified number of amniotic sacs, third trimester (principal); O09.523 Supervision of elderly multigravida, third trimester; Z3A.32 32 weeks gestation of pregnancy
CPT/HCPCS: 59025

== ENCOUNTER 2017-12-20 12:04 | Outpatient (CLI) | payer MEDICAID | END 2017-12-20 13:35 | disposition home or self-care (01) | LOC: LC 12:04 | PROVIDERS: ATTEND Obstetrics & Gynecology | PROC: 4A1HXCZ Monitoring of Products of Conception, Cardiac Rate, External Approach (ICD-10-PCS; principal; 2017-12-20) | DX: O30.003 Twin pregnancy, unspecified number of placenta and unspecified number of amniotic sacs, third trimester (principal); O09.523 Supervision of elderly multigravida, third trimester; Z3A.34 34 weeks gestation of pregnancy | CPT/HCPCS: 59025 ==

== ENCOUNTER 2018-01-10 06:38 | Inpatient (IN) | payer MEDICAID ==
[~2018-01-10 06:38] MED LIST: CEFAZOLIN 1 GM/D5W RTU 1 GM/50 ML RTUPB IV PRN
[2018-01-10 07:28] LABS: ABSOLUTE EOSINOPHILS # (AUTO) 0.1 10^3/uL (0.0-0.6); ABSOLUTE LYMPHOCYTES (AUTO) 1.5 10^3/uL (0.5-4.7); ABSOLUTE MONOCYTES (AUTO) 0.4 10^3/uL (0.1-1.4); ABSOLUTE NEUT (AUTO) 5.4 10^3/uL (1.7-8.2); BASOPHILS % (AUTO) 0.4 % (0-2); HEMATOCRIT 37.9 % (36.0-47.0); HEMOGLOBIN 12.9 g/dL (12.0-15.5); LYMPHOCYTES % (AUTO) 20.3 % (13-45); MEAN CORPUSCULAR HGB CONC 34.1 g/dL (32.0-36.0); MEAN CORPUSCULAR VOLUME 85 fl (80-97); MONOCYTES % (AUTO) 5.7 % (3-13); PLATELET COUNT 200 10^3/uL (150-450); RED BLOOD COUNT 4.45 10^6/uL (3.72-5.28); RED CELL DISTRIBUTION WIDTH 13.8 % (11.5-14.0); SEGMENTED NEUTROPHILS % (AUTO) 71.6 % (42-78); TOTAL CELLS COUNTED % (AUTO) 100 %; WHITE BLOOD COUNT 7.6 10^3/uL (4.0-10.5)
[2018-01-10 08:07] LABS: APPEARANCE,URINE SLIGHTLY-CLOUDY; BILIRUBIN,URINE NEGATIVE (NEGATIVE); COLOR,URINE YELLOW; GLUCOSE, URINE NEGATIVE (NEGATIVE); KETONES,URINE NEGATIVE (NEGATIVE); LEUKOCYTE ESTERASE,URINE NEGATIVE (NEGATIVE); NITRITE,URINE NEGATIVE (NEGATIVE); PROTEIN,URINE NEGATIVE (NEGATIVE); URINE SPECIFIC GRAVITY 1.019; UROBILINOGEN,URINE NEGATIVE mg/dL (<2.0)
[2018-01-10 08:34] LABS: URINE AMPHETAMINES SCREEN NEGATIVE; URINE BARBITURATES SCREEN NEGATIVE; URINE BENZODIAZEPINES SCREEN NEGATIVE; URINE COCAINE SCREEN NEGATIVE; URINE MARIJUANA (THC) SCREEN NEGATIVE; URINE METHADONE SCREEN NEGATIVE; URINE PHENCYCLIDINE SCREEN NEGATIVE
[2018-01-10] MEDS ORDERED: KETOROLAC TROMETHAMINE INJ/PF 30 MG/1 ML SDV ONE (08:35)
[2018-01-10] MEDS ORDERED: OXYTOCIN 10 UNIT/ML VIAL ONE (08:35)
[2018-01-10] MEDS ORDERED: BUPIVACAINE HCL/DEX-WATER/PF 15 MG/2 ML AMPULE ONE (08:36)
[2018-01-10] MEDS ORDERED: ONDANSETRON HCL INJ/PF 4 MG/2 ML SDV ONE (08:36)
[2018-01-10] MEDS ORDERED: OXYTOCIN/NORMAL SALINE 20 UNIT/1,000 ML RTUINJ ONE (08:36)
[2018-01-10] MEDS ORDERED: ACETAMINOPHEN 1,000 MG/100 ML RTUPB IV ONE (08:36)
[2018-01-10] MEDS ORDERED: MIDAZOLAM 2 MG/2 ML INJ ONE (08:36)
[2018-01-10] MEDS ORDERED: EPHEDRINE SULFATE INJ 50 MG/1 ML AMPULE ONE (08:36)
[2018-01-10] MEDS ORDERED: FENTANYL CITRATE INJ/PF 100 MCG/2 ML AMPUL ONE (08:36)
[2018-01-10] MEDS: RINGERS SOLUTION,LACTATED 1,000 ML IV PRN ×2 (08:55→16:19)
[2018-01-10] MEDS ORDERED: RINGERS SOLUTION,LACTATED 1,000 ML IV PRN (09:32)
[2018-01-10] MEDS ORDERED: FENTANYL CITRATE INJ/PF 100 MCG/2 ML AMPUL IV PRN ×3 (10:18)
[2018-01-10] MEDS ORDERED: PROMETHAZINE HCL INJ 25 MG/1 ML VIAL IV PRN ×3 (10:18→11:35)
[2018-01-10] MEDS ORDERED: MEPERIDINE HCL/PF INJ 25 MG/1 ML DISP.SYRIN IV PRN (10:18)
[2018-01-10] MEDS ORDERED: ONDANSETRON HCL INJ/PF 4 MG/2 ML SDV IV PRN (10:18)
[2018-01-10] MEDS ORDERED: DIPHENHYDRAMINE HCL 50 MG/ML VIAL IV PRN (10:18)
[2018-01-10] MEDS ORDERED: OXYCODONE-ACETAMINOPHEN 5-325 MG TABLET PO PRN (11:35)
[2018-01-10] MEDS ORDERED: OXYTOCIN/NORMAL SALINE 20 UNIT/1,000 ML RTUINJ IV PRN (11:35)
[2018-01-10] MEDS ORDERED: ACETAMINOPHEN 325 MG TABLET PO PRN (11:35)
[2018-01-10] MEDS ORDERED: DIPH/PERTUSS(ACELL)/TETANUS VAC/PF 0.5 ML SYR (>=10YO) IM PRN (11:35)
[2018-01-10] MEDS ORDERED: MEASLES,MUMPS&RUBELLA VACC/PF 0.5 ML VIAL SUBCUT PRN (11:35)
--- NOTE | 2018-01-10 11:38 | Warning Signs in Babies ---
VOD Warning Signs Datetime Report Generated by [facility]: 01/10/2018 11:38 VOD#608 -Warning Signs in Babies: Needs to be viewed. (01/10/2018 11:15:Sherry Roth RN)
--- NOTE | 2018-01-10 11:45 | PDOC DELIVERY SUMMARY ---
Delivery Summary - Maternal Hx : VIIII Hx # Term Pregnancies: 2 Hx Total # of Abortions (Sponateous & Elective): 6 YAMILETH: 01/30/18 Gestational Age: 37+1 Ruptured Membranes: AROM Time of Rupture: 10:20 Fluids: Clear - Delivery Presentation: Vertex Heart Rate Monitoring: Done Pre-Operatively Support Person Present: Yes Location: OR : Scheduled, Repeat Placenta: Within Normal Limits Number of Vessels (Cord): 2 Nuchal Cord: Yes - Baby A Delivery of Placenta Date: 01/10/18 Delivery of Placenta Time: 10:23 - Medications Type of Anesthesia:: Spinal - Assess and Care Baby 1 Male Delivery of Date: 01/10/18 Delivery of Infant Time: 10:21 at 1 minute: 9 at 5 minutes: 9 Preprinted Number On Band: [id number] Infant Skin to Skin: No To Nursery At: 10:32 Mode of Transport: Bassinet Delivery Weight: 2,435 Infant Delivery Length: 19 in Baby 2 Male Delivery of Date: 01/10/18 - Yaya Breech Delivery of Infant Time: 10:22 at 1 minute: 8 at 5 minutes: 9 Preprinted Number On Band: [id number] Skin to Skin: No To Nursery At: 10:32 Mode of Transport: Bassinet Delivery Weight: 2,875 Delivery Length: 20 in - Delivery Personnel Supervisor [employer]ting [employer] Sewing Room: MARQUIS Siddiqui RN: BURAK GRUBER RN: LACY PIMENTEL RN: MONAE BARRIOS MD: PARVEZ AMAYA
--- NOTE | 2018-01-10 12:18 | Operative Report ---
Operative Report DATE OF SURGERY: 01/10/18 PREOPERATIVE DIAGNOSIS: 1. Twin intrauterine at 37-1/7 weeks. 2. Previous section 1. 3. Maternal obesity. 4. Desires permanent sterilization plan. 5. Advanced maternal age. 6. Rubella immune. 7. GBS negative plan. 8. Rh+ POSTOPERATIVE DIAGNOSIS: Same OPERATION: 1. repeat section. 2. Bilateral partial salpingectomy SURGEON: PARVEZ VALLE ANESTHESIA: Spinal TISSUE REMOVED OR ALTERED: 1. Placenta. 2. Right and left partial salpinges COMPLICATIONS: None ESTIMATED BLOOD LOSS: 800 mL PROCEDURE: The patient was taken to the operating room where spinal anesthesia was administered without difficulty. A Eid catheter was then placed in the patient's bladder. She was then prepared and draped in the normal sterile fashion in the dorsal spine position with leftward tilt. A Pfannenstiel skin incision was then made using her previous incision as a guide and carried through underlying layer of fascia. The fascia was then incised in the midline and the incision was extended laterally. The superior aspect of the fascial incision was then grasped with Katie clamps, elevated, and underlying rectus muscles dissected off both bluntly and sharply. Attention was then turned to the inferior aspect of this incision which, in a similar fashion, was grasped, tented up with Katie clamps, and the rectus muscles dissected off bluntly and sharply. The rectus muscles were then in the midline and the peritoneum was identified, tented up and entered sharply with the Metzenbaum scissors. The peritoneal incision was then extended superiorly and inferiorly with good visualization of the bladder. The bladder blade was then inserted and the vesicouterine peritoneum was identified, grasped with pickups and entered sharply with the Metzenbaum scissors. This incision was then extended laterally and the bladder flap was created digitally. The bladder blade was then reinserted and the lower uterine segment was transverse fashion with scalpel. It was noted that the lower uterine segment was very thin. The uterine incision was then extended laterally with the bandage scissors, as well as digitally. The bladder blade was then removed and the 's head was delivered a traumatically. It was noted that there was nuchal cord 2 on baby A. The nose and mouth were then suctioned with the bulb suction and the cord was clamped and cut. The was handed off to the awaiting health care technician. Cord blood was obtained. An amniotomy was performed and baby B was in a gabo breech position. The lower extremities were then grasped and extracted. The rest of the body was also delivered atraumatically, as well as the head. The nose and mouth were then suctioned with the bulb suction and handed off to the awaiting health care technician. Cord blood was also obtained. The placenta was then removed manually. The uterus was not exteriorized secondary to its large size. The uterus was cleared of all clots and debris. The uterine incision was then repaired with 0 Vicryl in a running, locked fashion. A second layer using 0 chromic was used to imbricate the incision for excellent hemostasis. The bladder flap was then repaired with 3-0 Vicryl in a running fashion. Attention was then turned to the permanent sterilization. The left tube was grasped with a [place] and carried through to the fimbriated end of the tube. The Corinne was placed in the midline of the tube and 0 chromic gut was used to ligate the tube, which was then transected. Hemostasis was noted. The same procedure was performed on the right side and hemostasis was also noted. Both tubal segments were handed off to the OR tech. Attention was then returned to the patient's abdomen where the gutters were once again cleared of all clots and debris. The peritoneum was then closed in a running fashion with 2-0 Vicryl. The fascia was then reapproximated with 0 Vicryl in a running fashion. The subcutaneous fat layer was then closed in an interrupted fashion with 3-0 Vicryl. The skin was then closed in a subcuticular fashion with 4-0 Monocryl. The patient tolerated procedures well. Sponge, lap, instrument and needle counts were correct 2. Patient was given 2 g of Ancef prior to the start of the procedure. She was taken to the recovery room in stable condition.
[2018-01-10] MEDS ORDERED: HYDROMORPHONE HCL INJ/PF 2 MG/ML AMPULE IV PRN (14:35)
[2018-01-10] MEDS ORDERED: HYDROMORPHONE HCL INJ/PF 2 MG/ML AMPULE ONE (14:38)
[2018-01-10] MEDS: DOCUSATE SODIUM 100 MG CAPSULE PO SCH (18:12)
[2018-01-10] MEDS: OXYCODONE-ACETAMINOPHEN 5-325 MG TABLET PO PRN ×2 (18:39→23:30)
[2018-01-11] MEDS: OXYCODONE-ACETAMINOPHEN 5-325 MG TABLET PO PRN ×4 (03:18→20:40)
[2018-01-11 07:53] LABS: HEMATOCRIT 32.7 % (36.0-47.0); HEMOGLOBIN 11.1 g/dL (12.0-15.5); MEAN CORPUSCULAR HEMOGLOBIN 29.5 pg (27.0-33.4); MEAN CORPUSCULAR HGB CONC 33.8 g/dL (32.0-36.0); MEAN CORPUSCULAR VOLUME 87 fl (80-97); PLATELET COUNT 156 10^3/uL (150-450); RED BLOOD COUNT 3.75 10^6/uL (3.72-5.28); RED CELL DISTRIBUTION WIDTH 14.2 % (11.5-14.0); WHITE BLOOD COUNT 8.6 10^3/uL (4.0-10.5)
[2018-01-11] MEDS ORDERED: MEASLES,MUMPS&RUBELLA VACC/PF 0.5 ML VIAL SUBCUT PRN (09:00)
[2018-01-11] MEDS ORDERED: DIPH/PERTUSS(ACELL)/TETANUS VAC/PF 0.5 ML SYR (>=10YO) IM PRN (09:00)
[2018-01-11] MEDS ORDERED: PROMETHAZINE HCL INJ 25 MG/1 ML VIAL IV PRN (09:00)
--- NOTE | 2018-01-11 09:29 | PDOC PROGRESS REPORT ---
Subjective-OB Progress Note for:: 01/11/18 Physical Exam (OB) Vital Signs: Temp Pulse Resp BP Pulse Ox 98.7 F 84 18 99/62 L 94 01/11/18 07:49 01/11/18 07:49 01/11/18 07:49 01/11/18 07:49 01/11/18 04:00 Intake & Output 01/10/18 01/11/18 01/12/18 06:59 06:59 06:59 Intake Total 3000 Output Total 2925 Balance 75 Weight 120.06 kg - PIH/Pre-Eclampsia DTR's: 1 + Clonus: Negative Headache: Absent Epigastric Pain: No Visual Changes: No - Dressing Removed: No - optsite clean, dry and intact. Incision: Dressing - Lochia Lochia Amount: Small 10-25 ml Lochia Color: Rubra/Red - Abdomen Description: Soft Hernia Present: No Bowel Sounds: Normoactive Flatus Presence: Absent Stool: No Fundal Description: Firm, Midline Fundal Height: u/u - u/2 Objective-Diagnostic Laboratory: 01/11/18 07:45 01/11/18 07:45 WBC 8.6 RBC 3.75 Hgb 11.1 L Hct 32.7 L MCV 87 MCH 29.5 MCHC 33.8 RDW 14.2 H Plt Count 156
[2018-01-11] MEDS: PRENATAL VITAMIN W DHA CAPSULE PO SCH (09:47)
[2018-01-11] MEDS: SIMETHICONE 80 MG TAB.CHEW PO PRN (09:47)
[2018-01-11] MEDS: DOCUSATE SODIUM 100 MG CAPSULE PO SCH ×2 (09:47→18:30)
[2018-01-11] MEDS ORDERED: IBUPROFEN 800 MG TABLET PO SCH (10:00)
[2018-01-11] MEDS: IBUPROFEN 800 MG TABLET PO SCH (18:30)
[2018-01-12] MEDS: IBUPROFEN 800 MG TABLET PO SCH ×3 (01:16→17:54)
[2018-01-12] MEDS: OXYCODONE-ACETAMINOPHEN 5-325 MG TABLET PO PRN ×4 (01:17→22:57)
[2018-01-12] MEDS: SIMETHICONE 80 MG TAB.CHEW PO PRN (01:20)
[2018-01-12] MEDS: DOCUSATE SODIUM 100 MG CAPSULE PO SCH ×2 (09:01→17:54)
[2018-01-12] MEDS: PRENATAL VITAMIN W DHA CAPSULE PO SCH (09:02)
--- NOTE | 2018-01-12 11:46 | PDOC DISCHARGE SUMMARY ---
Final Diagnosis Discharge Date: 01/12/18 - Final Diagnosis (1) AMA (advanced maternal age) multigravida 35+ Is this a current diagnosis for this admission?: Yes (2) Delivery by elective caesarean section Is this a current diagnosis for this admission?: Yes (3) Twin delivered Is this a current diagnosis for this admission?: Yes Discharge Data - Discharge Medication Prescriptions: Ibuprofen [Motrin 800 mg Tablet] 800 mg PO Q8HP PRN #60 tablet PRN Reason: Oxycodone HCl/Acetaminophen [Percocet 5-325 mg Tablet] 1 tab PO Q4HP PRN #30 tablet PRN Reason: Home Medications: Prenat 115/Iron Fum/Folic/Dss [Pnv-Ferrous Koiizruq-Jokt-OU] 1 tab PO DAILY Ibuprofen [Motrin 800 mg Tablet] 800 mg PO Q8HP PRN #60 tablet 01/12/18 Oxycodone HCl/Acetaminophen [Percocet 5-325 mg Tablet] 1 tab PO Q4HP PRN #30 tablet 01/12/18 Procedures: NST Intrapartum Procedure(s): : Low Cervical, Transverse - Diagnosis Test Laboratory: Temp Pulse Resp BP Pulse Ox 98.2 F 73 20 106/53 L 100 01/12/18 07:35 01/12/18 07:35 01/12/18 07:35 01/12/18 07:35 01/12/18 07:35 01/10/18 01/10/18 01/11/18 07:00 07:29 07:45 RBC 4.45 3.75 Hgb 12.9 11.1 L Hct 37.9 32.7 L Urine Opiates Screen NEGATIVE - Discharge information/Instructions Discharge Activity: Balance Activity w/Rest, No Lifting Over 10 Pounds, No Lifting/Push/Pulling, Pelvic Rest, No tub bath Discharge Diet: Regular Disposition: HOME, SELF-CARE Follow up with: [facility] in: 5, Days
--- NOTE | 2018-01-12 16:08 | PDOC PROGRESS REPORT ---
Subjective-OB Progress Note for:: 01/12/18 Subjective: reports bleeding slowing, pain controlled with current meds, no needs expressed , + passing gas Physical Exam (OB) Vital Signs: Temp Pulse Resp BP Pulse Ox 98.5 F 81 18 110/81 98 01/12/18 15:40 01/12/18 15:40 01/12/18 15:40 01/12/18 15:40 01/12/18 15:40 Intake & Output 01/11/18 01/12/18 01/13/18 06:59 06:59 06:59 Intake Total 3000 600 Output Total 2925 Balance 75 600 - Dressing Removed: No Incision: Dressing, Well Approximated Closure Type: opsite - Abdomen Description: Tender, Soft Hernia Present: No Fundal Description: Firm Describe if Not Midline: slightly to right, instructed to void. Continue to monitor. Fundal Height: u/u - u/2 - Extremities Lower extremities: Dee's sign - neg Calf: Normal, Nontender Objective-Diagnostic Laboratory: 01/11/18 07:45 Assessment and Plan(PN) - Assessment and Plan (1) AMA (advanced maternal age) multigravida 35+ Is this a current diagnosis for this admission?: Yes (2) Delivery by elective caesarean section Is this a current diagnosis for this admission?: Yes (3) Twin delivered Is this a current diagnosis for this admission?: Yes - Time Spent with Patient Time with patient: Less than 15 minutes - Disposition Anticipated Discharge: Home Within: within 24 hours
[2018-01-13] MEDS: IBUPROFEN 800 MG TABLET PO SCH ×2 (02:27→09:29)
[2018-01-13] MEDS: OXYCODONE-ACETAMINOPHEN 5-325 MG TABLET PO PRN (04:43)
[2018-01-13] MEDS: DOCUSATE SODIUM 100 MG CAPSULE PO SCH (09:29)
[2018-01-13] MEDS: PRENATAL VITAMIN W DHA CAPSULE PO SCH (09:29)
--- NOTE | 2018-01-13 10:15 | PDOC PROGRESS REPORT ---
Subjective-OB Progress Note for:: 01/13/18 Subjective: having trouble having BM, agrees to enema Physical Exam (OB) Vital Signs: Temp Pulse Resp BP Pulse Ox 98.0 F 66 18 115/75 100 01/13/18 08:03 01/13/18 08:03 01/13/18 08:03 01/13/18 08:03 01/13/18 08:03 Intake & Output 01/12/18 01/13/18 01/14/18 06:59 06:59 06:59 Intake Total 600 88 Balance 600 88 - Dressing Removed: No - OPSITE In place Incision: Dressing, Well Approximated Closure Type: opsite - Abdomen Description: Tender, Soft, Round Hernia Present: No Fundal Description: Firm Describe if Not Midline: slightly to right, instructed to void. Continue to monitor. Fundal Height: u/u - u/2 Objective-Diagnostic Laboratory: 01/11/18 07:45 Assessment and Plan(PN) - Assessment and Plan (1) AMA (advanced maternal age) multigravida 35+ Is this a current diagnosis for this admission?: Yes (2) Delivery by elective caesarean section Is this a current diagnosis for this admission?: Yes (3) Twin delivered Is this a current diagnosis for this admission?: Yes - Time Spent with Patient Time with patient: Less than 15 minutes - Disposition Anticipated Discharge: Home - today
[2018-01-13] MEDS ORDERED: NA PHOS,M-B/NA PHOS,DI-BA (ADULT) 133 ML ENEMA PR ONE (11:15)
[2018-01-13 11:34] VITALS: BP 112/60
== END 2018-01-13 14:30 | disposition home or self-care (01) | DRG 765 ==
LOC: 2S 06:38
PROVIDERS: ADMIT Obstetrics & Gynecology; ATTEND Obstetrics & Gynecology
PROC: 0UB70ZZ Excision of Bilateral Fallopian Tubes, Open Approach (ICD-10-PCS; 2018-01-10)
PROC: 4A1HXCZ Monitoring of Products of Conception, Cardiac Rate, External Approach (ICD-10-PCS; 2018-01-10)
PROC: 10D00Z1 Extraction of Products of Conception, Low, Open Approach (ICD-10-PCS; principal; 2018-01-10 09:15)
PROC: 3E0234Z Introduction of Serum, Toxoid and Vaccine into Muscle, Percutaneous Approach (ICD-10-PCS; 2018-01-13)
DX: O34.211 Maternal care for low transverse scar from previous cesarean delivery (principal); Z68.42 Body mass index [BMI] 45.0-49.9, adult; O69.81X1 Labor and delivery complicated by cord around neck, without compression, fetus 1; O32.8XX2 Maternal care for other malpresentation of fetus, fetus 2; O99.214 Obesity complicating childbirth; E66.9 Obesity, unspecified; O30.043 Twin pregnancy, dichorionic/diamniotic, third trimester; Z3A.37 37 weeks gestation of pregnancy; Z30.2 Encounter for sterilization; Z37.2 Twins, both liveborn; Z23 Encounter for immunization
CPT/HCPCS: 1961; 36415; 59025; 80307; 81001; 85025; 85027; 86850; 86900; 86901; 88302; 90715; 94799; C1765; J0131; J0690; J1170; J1885; J2250; J2405; J2590; J3010; J3490